=== PATIENT | male | born 1955 | race Caucasian/White ===

== ENCOUNTER 2021-11-12 08:43 | Day surgery (SDC) | payer MEDICARE, OTHER ==
[2021-11-12] MEDS ORDERED: Sodium Chloride 0.9% 10 ML Syringe FLUSH PRN (09:00)
[2021-11-12] MEDS: Lactated Ringers 1,000 ML IV SCH (09:18)
[2021-11-12] MEDS ORDERED: Midazolam 1 MG/ML 2 ML SDV ONE (10:06)
[2021-11-12] MEDS ORDERED: Propofol 200 MG/20 ML SDV ONE (10:06)
[2021-11-12 14:00] VITALS: BP 119/69; PULSE 76
== END 2021-11-12 12:10 | disposition home or self-care (01) ==
LOC: KA.SDS 08:43
PROVIDERS: ATTEND Family Medicine
DX: Z12.11 Encounter for screening for malignant neoplasm of colon (principal); K57.30 Diverticulosis of large intestine without perforation or abscess without bleeding; K64.8 Other hemorrhoids; D12.5 Benign neoplasm of sigmoid colon; K21.9 Gastro-esophageal reflux disease without esophagitis; R35.0 Frequency of micturition; L02.91 Cutaneous abscess, unspecified; E66.9 Obesity, unspecified; Z68.30 Body mass index [BMI] 30.0-30.9, adult; E78.5 Hyperlipidemia, unspecified; Z88.8 Allergy status to other drugs, medicaments and biological substances; Z88.3 Allergy status to other anti-infective agents; Z79.01 Long term (current) use of anticoagulants; Z79.82 Long term (current) use of aspirin; Z79.899 Other long term (current) drug therapy; Z86.010 Personal history of colon polyps
CPT/HCPCS: 00812; 36415; 85610; J2250; J2704; J7120